=== PATIENT | male | born 1945 | race Caucasian/White ===

== ENCOUNTER → 2018-07-23 | Outpatient (REF) | payer MEDICARE ==
[~2018-07-23] MED LIST: ASPIRIN 8181 MG PO; AUGMENTIN875TAB PO; DILTIAZEM120 M1 PO; FLAX SEED1000 MG PO; MULT1 PO; NAPROSYN500 MG PO; OMEGA 3340 MG PO; PRAVASTATIN SOD20 MG PO; PRILOSEC40 MG PO; SORINE160 MG PO
[2018-07-23 12:28] LABS: ALBUMIN 3.9 g/dL (3.2-5.0); BILIRUBIN, TOTAL 0.7 mg/dL (0.0-1.4); CREATININE 1.5 mg/dL (0.7-1.3); POTASSIUM 4.1 mmol/l (3.5-5.1)
== END | disposition home or self-care (01) ==
LOC: LAB 10:51
PROVIDERS: ATTEND Nurse Practitioner
DX: N18.9 Chronic kidney disease, unspecified (principal); E11.9 Type 2 diabetes mellitus without complications

== ENCOUNTER 2019-08-19 | Emergency (ER) | payer MEDICARE ==
[2019-08-19] MEDS ORDERED: ELIQUIS2.5 MG PO (15:12)
[2019-08-19 15:46] LABS: IMMATURE GRANULOCYTES 0.3 % (0.0-5.0); MEAN CELL VOLUME 93.3 fL CALC (80.0-100.0); MEAN CORPUSCULAR HGB 31.3 pG CALC (26.0-32.0); MEAN CORPUSCULAR HGB CONC 33.6 g/dL CAL (32.0-36.0); NEUT# 6.23 thou/uL (1.82-7.42); RED BLOOD COUNT 5.52 mill/uL (4.70-6.10); RED CELL DISTRI WIDTH 12.6 % (11.5-15.5)
[2019-08-19 15:47] LABS: HEMATOCRIT 51.5 % (39.0-50.0); HEMOGLOBIN 17.3 g/dl (14.0-18.0)
[2019-08-19 16:17] LABS: ALBUMIN 4.4 g/dL (3.2-5.0); BILIRUBIN, TOTAL 0.8 mg/dL (0.0-1.4); CREATININE 1.6 mg/dL (0.7-1.3); POTASSIUM 3.9 mmol/l (3.5-5.1)
[2019-08-19 17:29] LABS: URINE BLOOD DIPSTICK NEGATIVE (NEGATIVE); URINE GLUCOSE - DIPSTICK NEGATIVE (NEGATIVE); URINE KETONE TRACE mg/dL (NEGATIVE); URINE LEUK ESTERASE NEGATIVE (NEGATIVE); URINE NITRITE - DIPSTICK NEGATIVE (Negative); URINE PH 5.5 (4.5-8.0); URINE PROTEIN - DIPSTICK 100 mg/dL (NEG-TRACE); URINE SPECIFIC GRAVITY >=1.030
[2019-08-19 17:32] LABS: URINE BILIRUBIN - DIPSTICK NEGATIVE (NEGATIVE); URINE COLOR AMBER
[2019-08-19 17:39] LABS: URINE RBC 0-2 RBC/hpf (0-5); URINE WBC 0-2 WBC/hpf (0-5)
== END 2019-08-19 20:42 | disposition short-term general hospital (02) ==
PROVIDERS: Family Medicine
DX: K56.600 Partial intestinal obstruction, unspecified as to cause (principal); I10 Essential (primary) hypertension; E11.9 Type 2 diabetes mellitus without complications

== ENCOUNTER 2020-06-28 20:26 | Inpatient (IN) | payer MEDICARE ==
[~2020-06-28] VITALS: Ht 195.6 cm; Wt 145.0 kg
[~2020-06-28 20:26] MED LIST changes: +ELIQUIS2.5 MG PO
--- NOTE | 2020-06-28 20:30 | NUR ---
PATIENT TO ROOM 14 FOR BEDSIDE TRIAGE.
[2020-06-28] MEDS ORDERED: WELLBUTRIN XL300 MG PO (20:52)
[2020-06-28] MEDS ORDERED: LOSARTAN POTASS25 MG PO (20:52)
[2020-06-28] MEDS ORDERED: RANOLAZINE ER1000 MG PO (20:53)
[2020-06-28] MEDS ORDERED: TAMSULOSIN HCL0.4 MG PO (20:54)
[2020-06-28] MEDS ORDERED: VICTOZA18 MG/3 ML SC (20:54)
--- NOTE | 2020-06-28 21:24 | NUR ---
IV STARTED/LABS/URINE/COVID COLLECTED. PT MEDICATED. IVF STARTED. PT SITTING UP AT BEDSIDE. COMFORTABLE IN THAT POSITION.
[2020-06-28 21:26] LABS: IMMATURE GRANULOCYTES 0.4 % (0.0-5.0); MEAN CORPUSCULAR HGB 30.9 pG CALC (26.0-32.0); MEAN CORPUSCULAR HGB CONC 32.9 g/dL CAL (32.0-36.0); NEUT# 6.38 thou/uL (1.82-7.42); RED BLOOD COUNT 4.53 mill/uL (4.70-6.10); RED CELL DISTRI WIDTH 12.4 % (11.5-15.5)
[2020-06-28 21:27] LABS: HEMATOCRIT 42.6 % (39.0-50.0)
[2020-06-28 21:28] LABS: URINE BILIRUBIN - DIPSTICK NEGATIVE (NEGATIVE); URINE BLOOD DIPSTICK LARGE (NEGATIVE); URINE COLOR YELLOW; URINE GLUCOSE - DIPSTICK NEGATIVE (NEGATIVE); URINE KETONE NEGATIVE (NEGATIVE); URINE LEUK ESTERASE NEGATIVE (NEGATIVE); URINE NITRITE - DIPSTICK NEGATIVE (Negative); URINE PH 5.5 (4.5-8.0); URINE PROTEIN - DIPSTICK TRACE mg/dL (NEG-TRACE); URINE SPECIFIC GRAVITY >=1.030; URINE UROBILINOGEN - DIPSTICK 0.2 E.U./dL (0.2)
[2020-06-28 21:38] LABS: URINE WBC 0-2 WBC/hpf (0-5)
[2020-06-28 21:44] LABS: ALBUMIN 3.8 g/dL (3.2-5.0); ALKALINE PHOSPHATASE 75 u/l (38-126); ANION GAP 12 (6-22 (CALC)); BILIRUBIN, TOTAL 0.5 mg/dL (0.0-1.4); BUN 34 mg/dL (8-23); BUN/CREATININE RATIO 17 (12-20 (CALC)); CARBON DIOXIDE 30 mmol/l (22-30); CHLORIDE 99 mmol/l (95-108); GFR 33 ML/MIN (>=60 (CALC)); GFR FOR AFR.AMER. 39 ML/MIN (>=60 (CALC)); LIPASE 39 u/l (23-300); POTASSIUM 3.7 mmol/l (3.5-5.1); SODIUM 137 mmol/l (137-146); TOTAL PROTEIN 7.3 g/dL (6.3-8.2)
[2020-06-28 21:46] LABS: AMYLASE < 30 u/l (30-110); SGOT/AST 34 u/l (19-48)
[2020-06-28 21:56] LABS: MYOGLOBIN 210 ng/mL (0 - 121)
--- NOTE | 2020-06-28 23:10 | NUR ---
PT RESTING. AWAITING RESULTS
--- NOTE | 2020-06-29 02:43 | NUR ---
PT UP TO BR. TRANSFERRED TO HOSPITAL BED FOR COMFORT PT WILL BE BOARDED IN ER FOR NOW. NG TO LIS. O2 SAT AT 92 ON RA. RETURNED TO O2 AT [address]. NO C/O AT PRESENT.
--- NOTE | 2020-06-29 03:20 | NUR ---
PT RESTING. APPEARS TO BE SLEEPING. NAD.
--- NOTE | 2020-06-29 04:30 | NUR ---
PT RESTING. NAD. RESP EASY REG.
--- NOTE | 2020-06-29 05:41 | NUR ---
PT RANG CALL LIGHT. C/O HEADACHE. USUALLY TAKES TYLENOL. DR. PELAEZ NOTIFIED.
--- NOTE | 2020-06-29 07:00 | NUR ---
CARE ASSUMED PT AWARE OF HOLDING IN ER WITH PENDING ADMISSION TO MED SURG WHEN BED AVAILABLE.
--- NOTE | 2020-06-29 07:38 | NUR ---
NPO STATUS MAINTAINED, PT RESTING NO NEW COMPLAINTS OFFERED, NG REMAINS TO LIS, CALL WISDOM WITHIN REACH
--- NOTE | 2020-06-29 08:00 | NUR ---
CALLED AWARE OF DELAYED ADMISSION REKLATED TO BED SITUATION.
--- NOTE | 2020-06-29 10:10 | NUR ---
REPORT CALLED TO [facility]
--- NOTE | 2020-06-29 10:25 | NUR ---
PT TRASNPORTED TO MED SURG VIA BED WITH TELE IN PLACE, AND DAUGHTER UPDATED
--- NOTE | 2020-06-29 10:26 | NUR ---
PT ARRIVED FROM ER VIA BED WITH NO DISTRESS NOTED. IV SITE INTACT. TELE MONITOR IN PLACE. NGT IN PLACE.
[2020-06-29 11:00] VITALS: BP 127/71
--- NOTE | 2020-06-29 11:15 | NUR ---
PT ASSESSMENT IS COMPLETED: IV SITE IS FREE FROM REDNESS OR EDEMA. HR IS REG,PULSES ARE STRONG X4, ABD IS SOFT WITH ACTIVE BS. BREATH SOUNDS ARE CLEAR,BILATERALLY. NGT IN PLACE. TELE MONITOR IN PLACE. CONTINUE TO OSBERVE AND MONITOR.
--- NOTE | 2020-06-29 13:16 | NUR ---
SPOKE WITH FAMILY RE: HOW PT IS DOING SENT CALL TO THE ROOM.
--- NOTE | 2020-06-29 16:00 | NUR ---
PT RETURNED FROM HAVING 1ST PART OF SBS AND WILL CALL FOR HIM AGAIN.
--- NOTE | 2020-06-29 18:01 | NUR ---
PT'S CALLED AND INQUIRED ABOUT PT. INFORMED OF THE TESTING THAT TAKES A LONG TIME. EXPLAINED HE WAS DOWNSTAIRS AND THE CAME BACK TO THE ROOM AND HAD TO RETURN AGAIN FOR THE FINAL PICTURE. EXPLAINED THE PROCEDURE AND WILL FIND OUT TOMORROW THE FINDINGS FROM THE RADILOLGIST.
[2020-06-29 19:00] VITALS: BP 130/70
--- NOTE | 2020-06-29 20:00 | NUR ---
PT ALERT AND ORIENTED. NG TUBE STILL INPLACE. PT HAS HAD A FEW BM IN THE TOILET. NO COMPLAINT OF PAIN. IV PATENT AND NORMAL SALINE RUNNING. TELE IN PLACE. CONTINUE TO OBSERVE AND MONITOR
--- NOTE | 2020-06-29 21:18 | NUR ---
PT 2100 MEDICATION HAS BEEN GIVEN AT 1731. JOSE J GAVE APPROVAL TO GIVE MEDICATION AGAIN AND CLAMP NG TUBE FOR 45 MINTUES.
[2020-06-30 00:30] VITALS: BP 131/81
--- NOTE | 2020-06-30 01:44 | NUR ---
PT IN BED. NORMAL SALINE BAG CHANGED. NG CANISTER 400CC. PT ASKED IF HE WILL BE ABLE TO EAT SOON EXPLAINED HE CANNOT AT THIS TIME DR WILL BE HERE IN THE MORNING. WILL CONTINUE TO MONITOR
[2020-06-30 04:33] VITALS: BP 153/78
[2020-06-30 05:09] LABS: HEMATOCRIT 41.3 % (39.0-50.0); HEMOGLOBIN 13.1 g/dl (14.0-18.0); MEAN CELL VOLUME 96.9 fL CALC (80.0-100.0); MEAN CORPUSCULAR HGB 30.8 pG CALC (26.0-32.0); MEAN CORPUSCULAR HGB CONC 31.7 g/dL CAL (32.0-36.0); RED BLOOD COUNT 4.26 mill/uL (4.70-6.10); RED CELL DISTRI WIDTH 12.5 % (11.5-15.5)
[2020-06-30 05:37] LABS: CREATININE 1.6 mg/dL (0.7-1.3); MAGNESIUM 2.1 mg/dL (1.6-2.3); POTASSIUM 3.7 mmol/l (3.5-5.1)
--- NOTE | 2020-06-30 07:07 | NUR ---
NG TUBE CANISTER CHANGED 800 CC. HE IS UP AND USING THE BATHROOM. REINFORCMENT OF TAPE ON NOSE. NORMAL SALINE STILL UP AND RUNNING.
[2020-06-30 08:31] VITALS: BP 131/81
--- NOTE | 2020-06-30 08:31 | NUR ---
PT RESTING IN SEMI FOWLERS POSITION. PT IS A/O X3. ASSESSMENT AND VITALS COMPLETED. BP 131/81, HR 70, O2 93% ON ROOM AIR. REPSIRATIONS ARE EVEN AND UNLABORED WITH NO DISTRESS NOTED. LUNG SOUNDS CLEAR. HEARTR HYTHM NORMAL WITH TELE IN PLACE, PACED PER ER MONITORING. BOWEL SOUNDS ARE ACTIVE. RADIAL AND PEDAL PULSES ARE STRONG. #20G IN RAC INFUSING WITH IVF PER ORDER, SITE APPEARS HEALTHY AND PATENT. ORDERS FOR NG TUBE TO BE REMOVED.PT DENIES OF ANY PAINS OR DISCOMFORTS. ALL SAFETY PRECAUTIONS ARE IN PLACE WITH CALL LIGHT IN REACH. WILL CONTINUE TO MONITOR
--- NOTE | 2020-06-30 08:40 | NUR ---
DR MARMOLEJO AT BEDSIDE
--- NOTE | 2020-06-30 08:41 | NUR ---
NG TUIBE REMOVED. PT TOELRATED WELL. FULL LUID DIET ORDER.
--- NOTE | 2020-06-30 09:48 | NUR ---
DR MARROQUIN AT BEDSIDE
[2020-06-30 11:00] VITALS: BP 119/62
--- NOTE | 2020-06-30 13:09 | NUR ---
PT REQUESTING TO EAT AND SHOWER BEFORE DISCHARGE. #20G IN RAC REMOVED WITH CATHATER STILL INTACT. PT TOLERATED WELL. ASSISTED PT TO SHOWER. INFORMED TO PULL CORD WHEN FINISHED. PT VERBALIZED UNDERSTANDING. WILL CONTINUE TO MONITOR
--- NOTE | 2020-06-30 13:34 | NUR ---
PT EDUCATED ON DISCHARGE INSTRUCTIONS. PT VERBALIZED UNDERSTANDING. WAITING FOR TRANSPORTATION. WILL CONTINUE TO MONITOR
--- NOTE | 2020-06-30 13:51 | NUR ---
Discharge instructions given. Patient verbalizes understanding of same. Discharged in stable condition via Wheelchair to Home with staff. All belongings sent with pt. PT DISCHARGED HOME IN STABLE CONDITION VIA WHEELCHAIR ACCOMPAINED BY BIBIANA BERMEO. PT LEFT WITH ALL DISCHARGE INSTRUCTIONS AND BELONGINGS. WILL CONTINUE TO MONITOR
== END 2020-06-30 13:51 | disposition home or self-care (01) | DRG 389 ==
LOC: ED 20:26 → ED-I 23:20 → ED 23:36 → MS2 23:37 → ED-I 23:37 → ICU 06-29 06:42 → ED-I 06-29 06:50 → MS2 06-29 08:11
PROVIDERS: Emergency Medicine; Nurse Practitioner; ADMIT Internal Medicine; ATTEND Internal Medicine
DX: K56.51 Intestinal adhesions [bands], with partial obstruction (principal); N17.9 Acute kidney failure, unspecified; I10 Essential (primary) hypertension; E11.9 Type 2 diabetes mellitus without complications; I48.91 Unspecified atrial fibrillation; K57.30 Diverticulosis of large intestine without perforation or abscess without bleeding; Z95.0 Presence of cardiac pacemaker; Z90.5 Acquired absence of kidney; Z20.822 Contact with and (suspected) exposure to COVID-19
CPT/HCPCS: J0131

== ENCOUNTER 2020-07-14 09:21 | Emergency (ER) | payer MEDICARE ==
[~2020-07-14] VITALS: Ht 195.6 cm; Wt 136.2 kg
[~2020-07-14 09:21] MED LIST changes: +LOSARTAN POTASS25 MG PO; +RANOLAZINE ER1000 MG PO; +TAMSULOSIN HCL0.4 MG PO; +VICTOZA18 MG/3 ML SC; +WELLBUTRIN XL300 MG PO
[2020-07-14 10:34] LABS: HEMATOCRIT 40.4 % (39.0-50.0); HEMOGLOBIN 13.3 g/dl (14.0-18.0); IMMATURE GRANULOCYTES 0.2 % (0.0-5.0); MEAN CELL VOLUME 93.3 fL CALC (80.0-100.0); MEAN CORPUSCULAR HGB 30.7 pG CALC (26.0-32.0); MEAN CORPUSCULAR HGB CONC 32.9 g/dL CAL (32.0-36.0); NEUT# 3.36 thou/uL (1.82-7.42); RED BLOOD COUNT 4.33 mill/uL (4.70-6.10); RED CELL DISTRI WIDTH 12.4 % (11.5-15.5)
[2020-07-14 10:51] LABS: ALBUMIN 3.8 g/dL (3.2-5.0); ALKALINE PHOSPHATASE 71 u/l (38-126); AMYLASE 38 u/l (30-110); BUN 10 mg/dL (8-23); BUN/CREATININE RATIO 7 (12-20 (CALC)); CARBON DIOXIDE 27 mmol/l (22-30); CHLORIDE 97 mmol/l (95-108); CREATININE 1.4 mg/dL (0.7-1.3); GFR 49 ML/MIN (>=60 (CALC)); GFR FOR AFR.AMER. 59 ML/MIN (>=60 (CALC)); LIPASE 51 u/l (23-300); POTASSIUM 3.9 mmol/l (3.5-5.1); SGOT/AST 22 u/l (19-48); TOTAL PROTEIN 7.2 g/dL (6.3-8.2)
[2020-07-14 10:57] LABS: ACT PARTIAL THROMBO TIME 29.9 SECONDS (20.0-32.5); INTERNATIONAL NORMALIZED RATIO 1.2 RATIO (0.7-1.3); PROTHROMBIN TIME 11.9 SECONDS (9.0-12.5)
[2020-07-14 11:01] LABS: ANION GAP 14 (6-22 (CALC)); BILIRUBIN, TOTAL 0.8 mg/dL (0.0-1.4); SODIUM 134 mmol/l (137-146)
[2020-07-14 16:19] LABS: URINE BILIRUBIN - DIPSTICK NEGATIVE (NEGATIVE); URINE BLOOD DIPSTICK NEGATIVE (NEGATIVE); URINE COLOR YELLOW; URINE GLUCOSE - DIPSTICK NEGATIVE (NEGATIVE); URINE KETONE TRACE mg/dL (NEGATIVE); URINE LEUK ESTERASE NEGATIVE (NEGATIVE); URINE NITRITE - DIPSTICK NEGATIVE (Negative); URINE PROTEIN - DIPSTICK NEGATIVE (NEG-TRACE); URINE UROBILINOGEN - DIPSTICK 0.2 E.U./dL (0.2)
[2020-07-14] MEDS ORDERED: COLACE100 MG PO (16:26)
[2020-07-14] MEDS ORDERED: MIRALAX17 GM/SCOO PO (16:26)
[2020-07-14 16:32] VITALS: BP 112/70
== END 2020-07-14 16:48 | disposition home or self-care (01) ==
LOC: ED 09:21
DX: K59.00 Constipation, unspecified (principal); I10 Essential (primary) hypertension; E11.9 Type 2 diabetes mellitus without complications; Z95.0 Presence of cardiac pacemaker; Z95.5 Presence of coronary angioplasty implant and graft; Z90.5 Acquired absence of kidney

== ENCOUNTER 2020-08-04 14:39 | Emergency (ER) | payer MEDICARE ==
[~2020-08-04] VITALS: Ht 195.6 cm; Wt 136.4 kg
[~2020-08-04 14:39] MED LIST changes: +COLACE100 MG PO; +MIRALAX17 GM/SCOO PO
[2020-08-04 15:18] VITALS: BP 112/62
== END 2020-08-04 15:18 | disposition home or self-care (01) ==
LOC: ED 14:39
PROC: 09C3XZZ Extirpation of Matter from Right External Auditory Canal, External Approach (ICD-10-PCS; principal; 2020-08-04)
DX: T16.1XXA Foreign body in right ear, initial encounter (principal); I10 Essential (primary) hypertension; E11.9 Type 2 diabetes mellitus without complications; Z95.5 Presence of coronary angioplasty implant and graft; Z95.0 Presence of cardiac pacemaker; X58.XXXA Exposure to other specified factors, initial encounter

== ENCOUNTER 2020-10-14 08:02 | Emergency (ER) | payer MEDICARE ==
[~2020-10-14] VITALS: Ht 195.6 cm; Wt 138.8 kg
[2020-10-14 10:47] LABS: HEMATOCRIT 42.5 % (39.0-50.0); HEMOGLOBIN 14.1 g/dl (14.0-18.0); IMMATURE GRANULOCYTES 0.6 % (0.0-5.0); MEAN CELL VOLUME 92.8 fL CALC (80.0-100.0); MEAN CORPUSCULAR HGB 30.8 pG CALC (26.0-32.0); MEAN CORPUSCULAR HGB CONC 33.2 g/dL CAL (32.0-36.0); NEUT# 8.23 thou/uL (1.82-7.42); RED BLOOD COUNT 4.58 mill/uL (4.70-6.10)
[2020-10-14 11:02] LABS: ALBUMIN 3.7 g/dL (3.2-5.0); CREATININE 1.6 mg/dL (0.7-1.3); POTASSIUM 4.2 mmol/l (3.5-5.1); TOTAL PROTEIN 7.1 g/dL (6.3-8.2)
[2020-10-14 11:03] LABS: BILIRUBIN, TOTAL 0.4 mg/dL (0.0-1.4)
[2020-10-14 11:05] LABS: ACT PARTIAL THROMBO TIME 28.8 SECONDS (20.0-32.5); INTERNATIONAL NORMALIZED RATIO 1.1 RATIO (0.7-1.3); PROTHROMBIN TIME 11.4 SECONDS (9.0-12.5)
[2020-10-14 11:42] VITALS: BP 127/63
[2020-10-14 12:06] LABS: URINE BILIRUBIN - DIPSTICK NEGATIVE (NEGATIVE); URINE BLOOD DIPSTICK NEGATIVE (NEGATIVE); URINE COLOR YELLOW; URINE GLUCOSE - DIPSTICK NEGATIVE (NEGATIVE); URINE KETONE NEGATIVE (NEGATIVE); URINE LEUK ESTERASE NEGATIVE (NEGATIVE); URINE PROTEIN - DIPSTICK NEGATIVE (NEG-TRACE); URINE SPECIFIC GRAVITY >=1.030; URINE UROBILINOGEN - DIPSTICK 0.2 E.U./dL (0.2)
[2020-10-14 12:08] LABS: URINE NITRITE - DIPSTICK NEGATIVE (Negative)
== END 2020-10-14 11:15 | disposition short-term general hospital (02) ==
LOC: ED 08:02
PROVIDERS: Emergency Medicine
DX: S72.001A Fracture of unspecified part of neck of right femur, initial encounter for closed fracture (principal); I10 Essential (primary) hypertension; I48.91 Unspecified atrial fibrillation; E11.9 Type 2 diabetes mellitus without complications; W01.0XXA Fall on same level from slipping, tripping and stumbling without subsequent striking against object, initial encounter; Y93.89 Activity, other specified; Y92.009 Unspecified place in unspecified non-institutional (private) residence as the place of occurrence of the external cause; Z95.0 Presence of cardiac pacemaker; Z95.5 Presence of coronary angioplasty implant and graft; Z20.822 Contact with and (suspected) exposure to COVID-19

== ENCOUNTER 2020-11-15 14:13 | Emergency (ER) | payer MEDICARE ==
[~2020-11-15] VITALS: Ht 195.6 cm; Wt 138.0 kg
[2020-11-15 16:41] LABS: BASO% 1 % (0-3); EOS% 6 % (0-8); IMMATURE GRANULOCYTES 0.2 % (0.0-5.0); LYMPH% 24 % (15-41); MEAN CELL VOLUME 96.5 fL CALC (80.0-100.0); MEAN CORPUSCULAR HGB 30.6 pG CALC (26.0-32.0); MEAN CORPUSCULAR HGB CONC 31.7 g/dL CAL (32.0-36.0); MONO% 15 % (2-13); NEUT# 2.46 thou/uL (1.82-7.42); NEUT% 55 % (42-76); PLATELET COUNT 247 thou/uL (130-400); RED BLOOD COUNT 3.43 mill/uL (4.70-6.10); RED CELL DISTRI WIDTH 13.6 % (11.5-15.5)
[2020-11-15 16:42] LABS: HEMATOCRIT 33.1 % (39.0-50.0); HEMOGLOBIN 10.5 g/dl (14.0-18.0)
[2020-11-15 16:57] LABS: C-REACTIVE PROTEIN 2.2 mg/dL (0-0.9); CREATININE 1.5 mg/dL (0.7-1.3); POTASSIUM 3.6 mmol/l (3.5-5.1)
[2020-11-15 18:09] VITALS: BP 119/73
== END 2020-11-15 18:14 | disposition home or self-care (01) ==
LOC: ED 14:13
PROVIDERS: Family Medicine
DX: M25.551 Pain in right hip (principal); I10 Essential (primary) hypertension; E11.9 Type 2 diabetes mellitus without complications; Z95.5 Presence of coronary angioplasty implant and graft; Z95.0 Presence of cardiac pacemaker; Z98.890 Other specified postprocedural states